=== PATIENT | male | born 1965 | race Caucasian/White ===

== ENCOUNTER 2016-10-16 20:10 | Inpatient (IN) | payer MEDICAID, OTHER ==
[~2016-10-16] VITALS: Ht 165.1 cm; Wt 95.2 kg
[~2016-10-16 20:10] MED LIST: ATEN1TAB73 PO; INHALER
[2016-10-16 20:12] VITALS: BP 138/78; PULSE 85; RESP 16; TEMP 98.6; O2SAT 98
[2016-10-16] MEDS ORDERED: GLYB2.5T3 PO (20:49)
[2016-10-16] MEDS ORDERED: METF1000 PO (20:49)
[2016-10-16] MEDS ORDERED: SIMV20TA PO (20:51)
[2016-10-16] MEDS ORDERED: METO50TA PO (20:51)
[2016-10-16] MEDS ORDERED: ASPI81CH CHEW (20:58)
--- NOTE | 2016-10-16 21:06 | PD ---
HPI Chief Complaint: Diabetic Time Seen by Provider: 20:54 Travel History International Travel<30 days: No Contact w/Intl Traveler<30days: No Traveled to known affect area: No History of Present Illness HPI 51-year-old male with history of type 2 diabetes on metformin, here for evaluation of elevated blood sugar and dark/tarry stools. Patient felt diaphoretic/lightheaded earlier today and noticed that his blood sugar was in the 300s. He has also had several episodes of loose and dark black stool. He denies abdominal pain. He has felt nauseous and has had a few episodes of vomiting. No chest pain or dyspnea. He takes aspirin 81 mg daily. No other antiplatelets or anticoagulate use. No NSAID overuse. He denies history of alcohol abuse. PFSH Past Medical History Hx Anticoagulant Therapy: Yes Cardiovascular Problems: Yes (CHF, HTN) High Cholesterol: Yes Chest Pain: Yes Congestive Heart Failure: Yes Diabetes: Yes Patient Takes Glucophage: Yes Diminished Hearing: No Gastrointestinal Disorders: No Genitourinary: No Hypertension: Yes Musculoskeletal: No Neurologic: No Reproductive: No Sleep Apnea: Yes Tetanus Vaccination: < 5 Years Influenza Vaccination: No Past Surgical History Ear Surgery: Yes (COSMETIC AGE 7 (LEFT)) Other Surgery: No Social History Alcohol Use: No Tobacco Use: Yes (quit 2 months ago) Substance Use: No Allergies-Medications (Allergen,Severity, Reaction): Coded Allergies: Lisinopril (Verified Allergy, Severe, Anaphylaxis, 10/16/16) Reported Meds & Prescriptions Reported Meds & Active Scripts Active Reported Aspirin 81 Mg Chew 81 Mg CHEW DAILY Metoprolol Tartrate 50 Mg Tab 50 Mg PO BID Simvastatin 20 Mg Tab 20 Mg PO DAILY Glyburide 2.5 Mg Tab 2.5 Mg PO DAILY Take with meals at the same time each day Metformin (Metformin HCl) 1,000 Mg Tab 1,000 Mg PO BIDPC With meals Review of Systems Except as stated in HPI: all other systems reviewed are Neg Physical Exam Narrative GENERAL: Well-developed, well-nourished, awake, alert, no acute distress. SKIN: Focused skin assessment warm/dry. No pallor. HEAD: Atraumatic. Normocephalic. EYES: Pupils equal and round. No scleral icterus. No injection or drainage. No conjunctival pallor. ENT: Mucous membranes pink and moist. NECK: Trachea midline. No JVD. CARDIOVASCULAR: Regular rate and rhythm. RESPIRATORY: No accessory muscle use. Clear to auscultation. Breath sounds equal bilaterally. GASTROINTESTINAL: Abdomen soft, non-tender, nondistended. RECTUM: No masses, no fissures, no hemorrhoids, heme positive black stool. MUSCULOSKELETAL: No obvious deformities. No clubbing. No cyanosis. No edema. NEUROLOGICAL: Awake and alert. No obvious cranial nerve deficits. Motor grossly within normal limits. Normal speech. PSYCHIATRIC: Appropriate mood and affect; insight and judgment normal. Data Data Last Documented VS Vital Signs Date Time Temp Pulse Resp B/P Pulse Ox O2 Delivery O2 Flow Rate FiO2 10/16/16 22:06 73 18 158/77 98 Room Air 10/16/16 20:12 98.6 Orders Complete Blood Count With Diff (10/16/16 21:01) Comprehensive Metabolic Panel (10/16/16 21:01) Lipase (10/16/16 21:01) Prothrombin Time / Inr (Pt) (10/16/16 21:01) Act Partial Throm Time (Ptt) (10/16/16 21:01) Type And Screen (10/16/16 21:01) Ecg Monitoring (10/16/16 21:01) Iv Access Insert/Monitor (10/16/16 21:01) Oximetry (10/16/16 21:01) Sodium Chloride 0.9% Flush (Ns Flush) (10/16/16 21:15) Pantoprazole Inj (Protonix Inj) (10/16/16 21:15) Pantoprazole Inj (Protonix Inj) (10/16/16 21:15) Labs Laboratory Tests Test 10/16/16 21:10 White Blood Count 15.5 TH/MM3 Red Blood Count 4.03 MIL/MM3 Hemoglobin 11.8 GM/DL Hematocrit 34.8 % Mean Corpuscular Volume 86.4 FL Mean Corpuscular Hemoglobin 29.4 PG Mean Corpuscular Hemoglobin 34.0 % Concent Red Cell Distribution Width 12.5 % Platelet Count 356 TH/MM3 Mean Platelet Volume 7.5 FL Neutrophils (%) (Auto) 62.2 % Lymphocytes (%) (Auto) 27.3 % Monocytes (%) (Auto) 5.2 % Eosinophils (%) (Auto) 5.0 % Basophils (%) (Auto) 0.3 % Neutrophils # (Auto) 9.7 TH/MM3 Lymphocytes # (Auto) 4.2 TH/MM3 Monocytes # (Auto) 0.8 TH/MM3 Eosinophils # (Auto) 0.8 TH/MM3 Basophils # (Auto) 0.0 TH/MM3 CBC Comment DIFF FINAL Differential Comment Prothrombin Time 10.7 SEC Prothromb Time International 1.0 RATIO Ratio Activated Partial 24.3 SEC Thromboplast Time Sodium Level 139 MEQ/L Potassium Level 3.7 MEQ/L Chloride Level 103 MEQ/L Carbon Dioxide Level 26.2 MEQ/L Anion Gap 10 MEQ/L Blood Urea Nitrogen 53 MG/DL Creatinine 0.99 MG/DL Estimat Glomerular Filtration 80 ML/MIN Rate Random Glucose 146 MG/DL Calcium Level 9.0 MG/DL Total Bilirubin 0.3 MG/DL Aspartate Amino Transf 10 U/L (AST/SGOT) Alanine Aminotransferase 16 U/L (ALT/SGPT) Alkaline Phosphatase 51 U/L Total Protein 7.3 GM/DL Albumin 3.4 GM/DL Lipase 112 U/L Blood Type O POSITIVE Antibody Screen NEGATIVE Blood Bank Comment [facility] Medical Decision Making Medical Screen Exam Complete: Yes Emergency Medical Condition: Yes Differential Diagnosis Melena, upper GI bleed, anemia, DKA, gastroenteritis, enteritis, colitis Narrative Course Initial vital signs show heart rate 85, blood pressure 138/78, pulse ox 98% on room air, oral temp of 98.6F. CBC shows WBC 15.5, hemoglobin 11.8, hematocrit 34.8, platelets 356. (Last hemoglobin in our system was from 2007 and was 15) CMP is remarkable for BUN 53, otherwise unremarkable. Lipase is 112. Stool is heme positive and black. Patient was given a Protonix bolus and started on a Protonix drip. Given heme positive stool, melena, elevated bun, and decrease in hemoglobin, the patient will be admitted for serial H&H and likely GI consultation. He takes aspirin 81 mg daily. No other antiplatelets or anticoagulants. Case discussed with [facility] hospitalist Dr. Saenz who will admit the patient to his service. HemaPrompt Point of Care Internal Pos. & Neg. Controls: Passed Fecal Specimen Occult Blood: Positive Comment Heme positive black stool Diagnosis Primary Impression: Melena Admitting Information Admitting Physician Requests: Observation Irvin Albarran MD October 16, 2016 21:06
[2016-10-16] MEDS ORDERED: PANTOPRAZOLE INJ 80 MG in SODIUM CHLORIDE 0.9% INJ 35 ML IV ONE (21:15)
[2016-10-16] MEDS ORDERED: SODIUM CHLORIDE 0.9% FLUSH 10 ML FLUSH IVF PRN (21:15)
[2016-10-16 21:25] LABS: AUTOMATED NEUTROPHIL # 9.7 TH/MM3 (1.8-7.7); BASOPHIL % 0.3 % (0.0-2.0); EOSINOPHIL # 0.8 TH/MM3 (0-0.4); HEMATOCRIT 34.8 % (39.0-51.0); HEMO FLAGS DIFF FINAL; LYMPH % 27.3 % (9.0-44.0); LYMPHOCYTE # 4.2 TH/MM3 (1.0-4.8); MEAN CELL VOLUME 86.4 FL (80.0-100.0); MEAN CORPUSCULAR HEMOGLOBIN 29.4 PG (27.0-34.0); MONO % 5.2 % (0.0-8.0); NEUT % 62.2 % (16.0-70.0); PLATELET COUNT 356 TH/MM3 (150-450); RED BLOOD COUNT 4.03 MIL/MM3 (4.50-5.90); RED CELL DISTRIBUTION WIDTH 12.5 % (11.6-17.2); WHITE BLOOD COUNT 15.5 TH/MM3 (4.0-11.0)
[2016-10-16 21:40] VITALS: O2SAT 98
[2016-10-16] MEDS: PANTOPRAZOLE INJ 80 MG in SODIUM CHLORIDE 0.9% INJ 100 ML IV SCH (21:40)
[2016-10-16 21:53] LABS: CHLORIDE 103 MEQ/L (98-107); POTASSIUM 3.7 MEQ/L (3.5-5.1); SODIUM (NA) 139 MEQ/L (136-145)
[2016-10-16 21:57] LABS: ANION GAP 10 MEQ/L (5-15); BICARBONATE 26.2 MEQ/L (21.0-32.0); BLOOD UREA NITROGEN 53 MG/DL (7-18)
[2016-10-16 21:58] LABS: APTT (PATIENT) 24.3 SEC (24.3-30.1); PROTHROMBIN TIME - PATIENT 10.7 SEC (9.8-11.6)
[2016-10-16 22:00] LABS: ALT (GPT) 16 U/L (12-78); AST (GOT) 10 U/L (15-37); GLOMERULAR FILTRATION RATE 80 ML/MIN (>89)
[2016-10-16 22:02] LABS: TOTAL BILIRUBIN ADULT 0.3 MG/DL (0.2-1.0)
[2016-10-16 22:03] LABS: ALKALINE PHOSPHATASE 51 U/L (45-117)
[2016-10-16 22:06] VITALS: BP 158/77; PULSE 73; RESP 18; O2SAT 98
[2016-10-16 23:24] VITALS: BP 133/62; PULSE 72; RESP 18; O2SAT 97
--- NOTE | 2016-10-16 23:32 | HHI.HP ---
HPI Service CP Hospitalists Primary Care Physician No Primary Care Physician Admission Diagnosis melena Chief Complaint: weakness today with dark stools Travel History International Travel<30 Days: No Contact w/Intl Traveler <30 Da: No Traveled to Known Affected Are: No History of Present Illness 51-year-old male with history of type 2 diabetes on metformin, . Patient felt diaphoretic/lightheaded earlier today and noticed that his blood sugar was in the 300s. He has also had several episodes of loose and dark black stool. He denies abdominal pain. He has felt nauseous and has had a few episodes of vomiting. No chest pain or dyspnea. He takes aspirin 81 mg daily. No other antiplatelets or anticoagulate use. No NSAID overuse. He denies history of alcohol abuse . Patient had slight drop in hgb from last know blood test and does have melanotic stools will admit and get GI evaluation. Review of Systems Gastrointestinal: COMPLAINS OF: Black stools Past Family Social History Past Medical History hx chf ,hypertension,hyperlipidemia, Past Surgical History cosmetic eye surgery Reported Medications Aspirin 81 Mg Chew 81 Mg CHEW DAILY Metoprolol Tartrate 50 Mg Tab 50 Mg PO BID Simvastatin 20 Mg Tab 20 Mg PO DAILY Glyburide 2.5 Mg Tab 2.5 Mg PO DAILY Take with meals at the same time each day Metformin (Metformin HCl) 1,000 Mg Tab 1,000 Mg PO BIDPC With meals Allergies: Coded Allergies: Lisinopril (Verified Allergy, Severe, Anaphylaxis, 10/16/16) Social History did smoke until 2 months ago no etoh Physical Exam Vital Signs Vital Signs Date Time Temp Pulse Resp B/P Pulse Ox O2 Delivery O2 Flow Rate FiO2 10/16/16 23:24 72 18 133/62 97 Room Air 10/16/16 22:06 73 18 158/77 98 Room Air 10/16/16 21:40 98 Room Air 10/16/16 20:52 16 98 Room Air 10/16/16 20:12 98.6 85 16 138/78 98 Physical Exam GENERAL: This is a well-nourished, well-developed patient, in no apparent distress. SKIN: No rashes, ecchymoses or lesions. Cool and dry. HEAD: Atraumatic. Normocephalic. No temporal or scalp tenderness. EYES: Pupils equal round and reactive. Extraocular motions intact. No scleral icterus. No injection or drainage. ENT: Nose without bleeding, purulent drainage or septal hematoma. Throat without erythema, tonsillar hypertrophy or exudate. Uvula midline. Airway patent. NECK: Trachea midline. No JVD or lymphadenopathy. Supple, nontender, no meningeal signs. CARDIOVASCULAR: Regular rate and rhythm without murmurs, gallops, or rubs. RESPIRATORY: Clear to auscultation. Breath sounds equal bilaterally. No wheezes , rales, or rhonchi. GASTROINTESTINAL: Abdomen soft, non-tender, nondistended. No hepato-splenomegaly , or palpable masses. No guarding. Guiac positive black stool MUSCULOSKELETAL: Extremities without clubbing, cyanosis, or edema. No joint tenderness, effusion, or edema noted. No calf tenderness. Negative Homans sign bilaterally. NEUROLOGICAL: Awake and alert. Cranial nerves II through XII intact. Motor and sensory grossly within normal limits. Five out of 5 muscle strength in all muscle groups. Normal speech. Laboratory Laboratory Tests Test 10/16/16 21:10 White Blood Count 15.5 Red Blood Count 4.03 Hemoglobin 11.8 Hematocrit 34.8 Mean Corpuscular Volume 86.4 Mean Corpuscular Hemoglobin 29.4 Mean Corpuscular Hemoglobin 34.0 Concent Red Cell Distribution Width 12.5 Platelet Count 356 Mean Platelet Volume 7.5 Neutrophils (%) (Auto) 62.2 Lymphocytes (%) (Auto) 27.3 Monocytes (%) (Auto) 5.2 Eosinophils (%) (Auto) 5.0 Basophils (%) (Auto) 0.3 Neutrophils # (Auto) 9.7 Lymphocytes # (Auto) 4.2 Monocytes # (Auto) 0.8 Eosinophils # (Auto) 0.8 Basophils # (Auto) 0.0 CBC Comment DIFF FINAL Differential Comment Prothrombin Time 10.7 Prothromb Time International 1.0 Ratio Activated Partial 24.3 Thromboplast Time Sodium Level 139 Potassium Level 3.7 Chloride Level 103 Carbon Dioxide Level 26.2 Anion Gap 10 Blood Urea Nitrogen 53 Creatinine 0.99 Estimat Glomerular Filtration 80 Rate Random Glucose 146 Calcium Level 9.0 Total Bilirubin 0.3 Aspartate Amino Transf 10 (AST/SGOT) Alanine Aminotransferase 16 (ALT/SGPT) Alkaline Phosphatase 51 Total Protein 7.3 Albumin 3.4 Lipase 112 Blood Type O POSITIVE Antibody Screen NEGATIVE Blood Bank Comment Result Diagram: 10/16/16210910/16/162109 Course in er IV started and started on protonix drip Assessment and Plan Problem List: (1) Melena Status: Acute Plan: acute melanotic stool with some abdominal discomfort on protonix will get GI evaluation follow hgb (2) Diabetes Status: Chronic Plan: will hold po meds use sliding scale as may need procedure (3) Hypertension Status: Chronic Plan: continue metoprolol Assessment and Plan further plan as case develops Code Status full Discussed Condition With patient Physician Certification 2 Midnight Certification Type: Admission for Inpatient Services Order for Inpatient Services The services are ordered in accordance with Medicare regulations or non- Medicare payer requirements, as applicable. In the case of services not specified as inpatient-only, they are appropriately provided as inpatient services in accordance with the 2-midnight benchmark. Estimated LOS (days): 2 2 days is the estimated time the patient will need to remain in the hospital, assuming treatment plan goals are met and no additional complications. Post-Hospital Plan: Not yet determined Problem Qualifiers (1) Diabetes: Mario Layne MD October 16, 2016 23:32
[2016-10-16] MEDS ORDERED: NALOXONE HCL 0.4 MG/ML AMP IV PRN (23:45)
[2016-10-16] MEDS ORDERED: ONDANSETRON HCL 4 MG/2 ML VIAL IVP PRN (23:45)
[2016-10-16] MEDS ORDERED: SODIUM CHLORIDE 0.9% FLUSH 10 ML FLUSH IV FLUSH PRN (23:45)
[2016-10-16] MEDS ORDERED: GLUCAGON 1 MG/ML VIAL OTHER PRN (23:45)
[2016-10-16] MEDS ORDERED: ACETAMINOPHEN 325 MG TAB PO PRN (23:45)
[2016-10-16] MEDS ORDERED: DEXTROSE 50% IN WATER 50 ML VIAL(D50) IV PUSH PRN (23:45)
[2016-10-16] MEDS: SODIUM CHLOR 0.45% 1000 ML INJ 1,000 ML IV SCH (23:56)
[2016-10-17 00:30] VITALS: BP 120/56; PULSE 73; RESP 20; TEMP 97.7; O2SAT 95
[2016-10-17 00:37] VITALS: BP 140/66
[2016-10-17] MEDS: PANTOPRAZOLE INJ 80 MG in SODIUM CHLORIDE 0.9% INJ 100 ML IV SCH ×2 (06:23→17:11)
[2016-10-17] MEDS: INSULIN ASPART SUPPLEMENTAL SCALE SQ SCH ×4 (06:26→21:00)
[2016-10-17 07:37] LABS: AUTOMATED NEUTROPHIL # 6.5 TH/MM3 (1.8-7.7); BASOPHIL % 0.1 % (0.0-2.0); EOSINOPHIL # 0.8 TH/MM3 (0-0.4); EOSINOPHIL % 6.9 % (0.0-4.0); HEMATOCRIT 29.4 % (39.0-51.0); HEMO FLAGS DIFF FINAL; LYMPH % 27.4 % (9.0-44.0); MEAN CELL VOLUME 86.4 FL (80.0-100.0); MEAN CORPUSCULAR HEMOGLOBIN 30.2 PG (27.0-34.0); MONO % 5.6 % (0.0-8.0); PLATELET COUNT 273 TH/MM3 (150-450); RED CELL DISTRIBUTION WIDTH 12.9 % (11.6-17.2); WHITE BLOOD COUNT 10.9 TH/MM3 (4.0-11.0)
[2016-10-17 08:00] VITALS: BP 151/75; PULSE 75; RESP 18; TEMP 96.9; O2SAT 99
[2016-10-17] MEDS: SODIUM CHLORIDE 0.9% FLUSH 10 ML FLUSH IV FLUSH SCH ×2 (09:00→21:00)
[2016-10-17] MEDS: METOPROLOL TARTRATE 50 MG TAB PO SCH ×2 (09:18→23:03)
--- NOTE | 2016-10-17 09:46 | HHI.PR ---
Subjective Remarks Patient feeling alright did not have bowel movement again hgb did decrease a little await GI consult ,will continue NPO for now WBC count now normal Objective Vitals GENERAL: SKIN: Warm and dry. HEAD: Atraumatic. Normocephalic. EYES: Pupils equal and round. No scleral icterus. No injection or drainage. ENT: No nasal bleeding or discharge. Mucous membranes pink and moist. NECK: Trachea midline. No JVD. CARDIOVASCULAR: Regular rate and rhythm. RESPIRATORY: No accessory muscle use. Clear to auscultation. Breath sounds equal bilaterally. GASTROINTESTINAL: Abdomen soft, non-tender, nondistended. Hepatic and splenic margins not palpable. MUSCULOSKELETAL: Extremities without clubbing, cyanosis, or edema. No obvious deformities. NEUROLOGICAL: Awake and alert. No obvious cranial nerve deficits. Motor grossly within normal limits. Five out of 5 muscle strength in the arms and legs. Normal speech. PSYCHIATRIC: Appropriate mood and affect; insight and judgment normal. Vital Signs Date Time Temp Pulse Resp B/P Pulse Ox O2 Delivery O2 Flow Rate FiO2 10/17/16 08:00 96.9 75 18 151/75 99 10/17/16 00:37 75 18 140/66 98 10/17/16 00:30 97.7 73 20 120/56 95 10/16/16 23:24 72 18 133/62 97 Room Air 10/16/16 22:06 73 18 158/77 98 Room Air 10/16/16 21:40 98 Room Air 10/16/16 20:52 16 98 Room Air 10/16/16 20:12 98.6 85 16 138/78 98 10/16/16 10/16/16 10/17/16 15:00 23:00 07:00 Intake Total 300 ml Balance 300 ml Intake IV Total 300 ml Result Diagram: 10/17/16 0700 10/16/16 2110 A/P Problem List: (1) Melena Status: Acute Plan: acute melanotic stool with some abdominal discomfort on protonix await GI evaluation follow hgb (2) Diabetes Status: Chronic Plan: will hold po meds use sliding scale as may need procedure (3) Hypertension Status: Chronic Plan: continue metoprolol Problem Qualifiers (1) Diabetes: Mario Layne MD October 17, 2016 09:46
[2016-10-17 12:00] VITALS: BP 148/79; PULSE 65; RESP 20; TEMP 97.2; O2SAT 99
[2016-10-17] MEDS: SODIUM CHLOR 0.45% 1000 ML INJ 1,000 ML IV SCH (12:54)
[2016-10-17 16:00] VITALS: BP 122/71; PULSE 60; RESP 20; TEMP 96.2; O2SAT 98
[2016-10-17 20:00] VITALS: BP 140/79; PULSE 63; RESP 20; TEMP 97.3; O2SAT 100
[2016-10-17] MEDS ORDERED: PEG (High)/E-LYTE SOLN 4000 ML BTL PO ONE (20:15)
[2016-10-18] VITALS: BP 153/88; PULSE 65; RESP 20; TEMP 96.7; O2SAT 100
[2016-10-18] MEDS: PANTOPRAZOLE INJ 80 MG in SODIUM CHLORIDE 0.9% INJ 100 ML IV SCH (03:09)
[2016-10-18] MEDS: INSULIN ASPART SUPPLEMENTAL SCALE SQ SCH (06:14)
[2016-10-18 06:37] VITALS: BP 165/87; PULSE 69; RESP 20; TEMP 96.9; O2SAT 100
[2016-10-18 06:47] VITALS: BP 165/87; PULSE 69; RESP 15; TEMP 96.9; O2SAT 100
--- NOTE | 2016-10-18 07:09 | MB ---
cc: KIKO DANIELS M.D. DATE OF CONSULTATION 10/17/2016 DATE OF [address] Layne REASON FOR REFERRAL Anemia, possible GI bleed. Thank you for the consultation for this 51-year-old gentleman who has a history of diabetes. 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 Yesterday, he started feeling dizzy, lightheaded and he had a blood sugar in the 300's. He had loose black stools and some nausea and abdominal discomfort. He ended up having a few episodes of vomiting. No coffee-ground. No hematemesis. The patient apparently takes significant NSAIDs recently because of construction and he is having back and joint pain. He denied any other symptoms. Never had a colonoscopy or endoscopy in the past. Denied any bright red blood per rectum. He currently feels better overall. REVIEW OF SYSTEMS All 12-points negative except HPI. PAST MEDICAL HISTORY Significant for cosmetic eye surgery PAST MEDICAL HISTORY Significant for: 1. Hyperlipidemia 2. Hypertension 3. Congestive heart failure MEDICATIONS Reviewed in the chart. ALLERGIES LISINOPRIL SOCIAL HISTORY He stopped smoking two months ago. He denied any drugs or alcohol. PHYSICAL EXAMINATION Alert, oriented no acute distress. VITAL SIGNS: Stable. HEENT: Pupils are round and reactive to light. NECK: Supple. CHEST: Clear. CARDIAC: Regular rate and rhythm. ABDOMEN: Soft, nondistended. Positive bowel sounds. EXTREMITIES: No edema, clubbing or cyanosis. NEUROLOGIC: intact. PSYCHOLOGIC: Appropriate. LABORATORY DATA White count 10.9 down from 15.5, hemoglobin 10.3 down from 11.8, platelet 273, AST 10, ALT 16, alk phos 51, total bilirubin 0.3, INR 1.0. ASSESSMENT/PLAN This is a pleasant 51-year-old gentleman who has a history of anemia, possible GI bleed. The patient denied any GI symptoms, but he dropped his hemoglobin. He is almost 52. I recommend doing upper endoscopy and a colonoscopy. I have discussed with the patient the procedure and complications. He agreed to have it done. This will be done tomorrow as an inpatient. Meanwhile, we will continue supportive care. We will watch his sugar and we will follow up his hemoglobin. If it is low, we will give him packed RBC. MD KRISTEN Garcia/NADIA /8:07 PM /7:03 AM
[2016-10-18] MEDS ORDERED: PROPOFOL 200 MG/20 ML AMP IV ONE (07:12)
[2016-10-18 07:23] LABS: AUTOMATED NEUTROPHIL # 6.6 TH/MM3 (1.8-7.7); BASOPHIL % 0.3 % (0.0-2.0); EOSINOPHIL # 0.9 TH/MM3 (0-0.4); EOSINOPHIL % 7.5 % (0.0-4.0); HEMATOCRIT 29.7 % (39.0-51.0); HEMO FLAGS DIFF FINAL; LYMPH % 28.9 % (9.0-44.0); LYMPHOCYTE # 3.3 TH/MM3 (1.0-4.8); MEAN CELL VOLUME 86.2 FL (80.0-100.0); MEAN CORPUSCULAR HEMOGLOBIN 29.1 PG (27.0-34.0); MEAN CORPUSCULAR HGB CONC 33.8 % (32.0-36.0); MONO % 5.6 % (0.0-8.0); NEUT % 57.7 % (16.0-70.0); PLATELET COUNT 309 TH/MM3 (150-450); RED BLOOD COUNT 3.45 MIL/MM3 (4.50-5.90); RED CELL DISTRIBUTION WIDTH 12.3 % (11.6-17.2); WHITE BLOOD COUNT 11.4 TH/MM3 (4.0-11.0)
--- NOTE | 2016-10-18 07:30 | GIPROC ---
[facility] [address] [place] [address], [id number] EGD PROCEDURE REPORT EXAM DATE: 10/18/2016 PATIENT NAME: Zana Shultz MR #: [id number] BIRTHDATE: 1965 ATTENDING: Phan Corey MD ORDER #: [id number] SYSTEMS TEST TECHNICIAN: Jeramy Keating Neal STATUS: inpatient INDICATIONS: The patient is a 51 yr old male here for an EGD due to anemia and vomiting PROCEDURE PERFORMED: EGD w/ biopsy EGD w/ dilation of esophagus via guidewire MEDICATIONS: None and Per Anesthesia. TOPICAL ANESTHETIC: none CONSENT: The patient understands the risks and benefits of the procedure and understands that these risks include, but are not limited to: sedation, allergic reaction, infection, perforation and/or bleeding. Alternative means of evaluation and treatment include, among others: physical exam, x-rays, and/or surgical intervention. The patient elects to proceed with this endoscopic procedure. medical equipment was checked for proper function. Hand hygiene and appropriate measures for infection prevention was taken. After the risks, benefits and alternatives of the procedure were thoroughly explained, Informed consent was verified, confirmed and timeout was successfully executed by the treatment team. The patient was anesthetized with topical anesthesia and the EC-3490Li (Pedi C) endoscope was introduced through the mouth and advanced to the second portion of the duodenum. Retroflexed views revealed no abnormalities The gastroscope was then slowly withdrawn and removed. Irregular Z line Bx done from EG junction. Esophageal stricture S/P dilation savary 18 mm. Mild duodenitis. Sever gastritis with small ulceration Bx from antrum. The endoscopy was otherwise normal. ADVERSE EVENTS: There were no complications. IMPRESSIONS: 1. Irregular Z line Bx done from EG junction 2. Esophageal stricture S/P dilation savary 18 mm 3. Mild duodenitis 4. Sever gastritis with small ulceration Bx from antrum 5. Normal endoscopy otherwise 6. Retroflexed views revealed no abnormalities RECOMMENDATIONS: 1. Await biopsy results. Biopsy results will not be ready for 7-10 days. If you don't hear from us in two weeks, call our office for biopsy results. 2. Anti-reflux regimen 3. Avoid NSAIDS 4. Continue PPI 5. Ok to [place] home from GI stand PATIENT CONDITION: stable DISPOSITION: Inpatient REPEAT EXAM: Return as needed for EGD Phan Corey MD eSigned: Phan Corey MD 10/18/2016 7:29 AM cc: PATIENT NAME: Zana Shultz MR#: [id number]
--- NOTE | 2016-10-18 07:32 | GIPROC ---
[facility] [address] [place] [address], [id number] COLONOSCOPY PROCEDURE REPORT EXAM DATE: 10/18/2016 PATIENT NAME: Zana Shultz MR #: [id number] BIRTHDATE: 1965 ENDOSCOPIST: Phan Corey MD ORDER #: [id number] INSPECTOR WATCH TRAIN: Brijesh Etienne and Alexandra Keating STATUS: inpatient INDICATIONS: The patient is a 51 yr old male here for a colonoscopy due to anemia, non-specific PROCEDURE PERFORMED: Colonoscopy, diagnostic MEDICATIONS: None and Per Anesthesia. PREP QUALITY: 10 % obscured ESTIMATED BLOOD LOSS: None CONSENT: The patient understands the risks and benefits of the procedure and understands that these risks include, but are not limited to: sedation, allergic reaction, infection, perforation and/or bleeding. Alternative means of evaluation and treatment include, among others: physical exam, x-rays, and/or surgical intervention. The patient elects to proceed with this endoscopic procedure. medical equipment was checked for proper function. Hand hygiene and appropriate measures for infection prevention was taken. After the risks, benefits and alternatives of the procedure were thoroughly explained, Informed consent was verified, confirmed and timeout was successfully executed by the treatment team. A digital exam revealed no abnormalities of the rectum The Pentax EC-[id number] endoscope was introduced through the anus and advanced to the cecum, which was identified by both the appendix and ileocecal valve. The instrument was then slowly withdrawn as the colon was fully examined. COLON FINDINGS: Some stool throughout the colon mostly in the cecum. The colon mucosa was otherwise normal. Retroflexed views revealed no abnormalities The scope was then completely withdrawn from the patient and the procedure terminated. ADVERSE EVENTS: There were no complications. IMPRESSIONS: 1. Some stool throughout the colon mostly in the cecum 2. The colon mucosa was otherwise normal 3. Retroflexed views revealed no abnormalities 4. Revealed no abnormalities of the rectum RECOMMENDATIONS: 1. Yearly hemoccult 2. High fiber diet RECALL: Return 1 year Colonoscopy Phan Corey MD eSigned: Phan Corey MD 10/18/2016 7:32 AM cc:
--- NOTE | 2016-10-18 07:35 | HHI.GIFU ---
Subjective Remarks feels well, no new complains, Objective Vitals I&O Vital Signs Date Time Temp Pulse Resp B/P Pulse Ox O2 Delivery O2 Flow Rate FiO2 10/18/16 06:47 96.9 69 15 165/87 100 10/18/16 06:37 96.9 69 20 165/87 100 10/18/16 00:00 96.7 65 20 153/88 100 10/17/16 20:00 97.3 63 20 140/79 100 10/17/16 16:00 96.2 60 20 122/71 98 10/17/16 12:00 97.2 65 20 148/79 99 10/17/16 08:00 96.9 75 18 151/75 99 I/O 10/17/16 10/17/16 10/17/16 10/18/16 10/18/16 10/18/16 07:00 15:00 23:00 07:00 15:00 23:00 Intake Total 300 ml 240 ml 2000 ml Balance 300 ml 240 ml 2000 ml Intake Oral 240 ml 0 ml Oral Supplement 2000 ml IV Total 300 ml # Voids 3 6 # Bowel Movements 0 10 Laboratory Laboratory Tests Test 10/18/16 06:30 White Blood Count 11.4 Red Blood Count 3.45 Hemoglobin 10.0 Hematocrit 29.7 Mean Corpuscular Volume 86.2 Mean Corpuscular Hemoglobin 29.1 Mean Corpuscular Hemoglobin 33.8 Concent Red Cell Distribution Width 12.3 Platelet Count 309 Mean Platelet Volume 7.8 Neutrophils (%) (Auto) 57.7 Lymphocytes (%) (Auto) 28.9 Monocytes (%) (Auto) 5.6 Eosinophils (%) (Auto) 7.5 Basophils (%) (Auto) 0.3 Neutrophils # (Auto) 6.6 Lymphocytes # (Auto) 3.3 Monocytes # (Auto) 0.6 Eosinophils # (Auto) 0.9 Basophils # (Auto) 0.0 CBC Comment DIFF FINAL Differential Comment Physical Exam HEENT: Pupils round and reactive to light; normocephalic; atraumatic; no jaundice. Throat is clear. NECK: Neck is supple, no JVD, no lymphadenopathy. CHEST: Chest is clear to auscultation and percussion. CARDIAC: Regular rate and rhythm with no murmur gallop or rubs. ABDOMEN: Soft, nondistended, nontender; no hepatosplenomegaly; bowel sounds are present in all four quadrants. EXTREMITIES: No clubbing, cyanosis, or edema. SKIN: Normal; no rash; no jaundice. 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 Assessment and Plan Plan doing ok no sign of bleed, EGD showed esophageal stricture s/p dilation, irregular Z line, Bx done, gastritis with small ulcerations in the antrum Bx done, colon was normal continue PPI diet as tolerated FU Bx ok to [place] home from Phan Wetzel MD October 18, 2016 07:35
[2016-10-18 08:00] VITALS: BP 139/75; PULSE 88; RESP 18; TEMP 97.5; O2SAT 99
[2016-10-18 08:04] VITALS: BP 95/64; PULSE 70; RESP 16; TEMP 98; O2SAT 97
[2016-10-18] MEDS: SODIUM CHLORIDE 0.9% FLUSH 10 ML FLUSH IV FLUSH SCH (08:41)
[2016-10-18] MEDS: SODIUM CHLOR 0.45% 1000 ML INJ 1,000 ML IV SCH (08:41)
[2016-10-18] MEDS: METOPROLOL TARTRATE 50 MG TAB PO SCH (08:41)
[2016-10-18] MEDS ORDERED: PANT20 PO (10:13)
--- NOTE | 2016-10-18 10:14 | HHI.DCPOC ---
Discharge Care Plan Diagnosis: (1) Melena (2) Diabetes (3) Hypertension Goals to Promote Your Health * To prevent worsening of your condition and complications * To maintain your health at the optimal level Directions to Meet Your Goals Take your medications as prescribed Follow your dietary instruction Follow activity as directed Keep your appointments as scheduled Take your immunizations and boosters as scheduled If your symptoms worsen call your PCP, if no PCP go to Urgent Care Center or Emergency Room Smoking is Dangerous to Your Health. Avoid second hand smoke Call the 24-hour hour crisis hotline for domestic abuse at Mario Layne MD October 18, 2016 10:14
--- NOTE | 2016-10-18 10:22 | HHI.DS ---
Discharge Summary Admission Date October 16, 2016 at 23:39 Admitting Diagnosis melena (1) Melena Diagnosis: Principal (2) Diabetes Diagnosis: Principal (3) Hypertension Diagnosis: [facility] GI Procedures panendoscopy Brief History 51-year-old male with history of type 2 diabetes on metformin, . Patient felt diaphoretic/lightheaded earlier today and noticed that his blood sugar was in the 300s. He has also had several episodes of loose and dark black stool. He denies abdominal pain. He has felt nauseous and has had a few episodes of vomiting. No chest pain or dyspnea. He takes aspirin 81 mg daily. No other antiplatelets or anticoagulate use. No NSAID overuse. He denies history of alcohol abuse . Patient had slight drop in hgb from last know blood test and does have melanotic stools will admit and get GI evaluation. CBC/BMP: 10/18/16 0630 10/16/16 2110 Significant Findings Laboratory Tests Test 10/16/16 10/17/16 10/18/16 21:10 07:00 06:30 White Blood Count 15.5 TH/MM3 11.4 TH/MM3 (4.0-11.0) (4.0-11.0) Red Blood Count 4.03 MIL/MM3 3.40 MIL/MM3 3.45 MIL/MM3 (4.50-5.90) (4.50-5.90) (4.50-5.90) Hemoglobin 11.8 GM/DL 10.3 GM/DL 10.0 GM/DL (13.0-17.0) (13.0-17.0) (13.0-17.0) Hematocrit 34.8 % 29.4 % 29.7 % (39.0-51.0) (39.0-51.0) (39.0-51.0) Eosinophils (%) (Auto) 5.0 % (0.0-4.0) 6.9 % (0.0-4.0) 7.5 % (0.0-4.0) Neutrophils # (Auto) 9.7 TH/MM3 (1.8-7.7) Eosinophils # (Auto) 0.8 TH/MM3 0.8 TH/MM3 0.9 TH/MM3 (0-0.4) (0-0.4) (0-0.4) Blood Urea Nitrogen 53 MG/DL (7-18) Estimat Glomerular Filtration 80 ML/MIN (>89) Rate Random Glucose 146 MG/DL (74-106) Aspartate Amino Transf 10 U/L (15-37) (AST/SGOT) PE at Discharge GENERAL: SKIN: Warm and dry. HEAD: Atraumatic. Normocephalic. EYES: Pupils equal and round. No scleral icterus. No injection or drainage. ENT: No nasal bleeding or discharge. Mucous membranes pink and moist. NECK: Trachea midline. No JVD. CARDIOVASCULAR: Regular rate and rhythm. RESPIRATORY: No accessory muscle use. Clear to auscultation. Breath sounds equal bilaterally. GASTROINTESTINAL: Abdomen soft, non-tender, nondistended. Hepatic and splenic margins not palpable. MUSCULOSKELETAL: Extremities without clubbing, cyanosis, or edema. No obvious deformities. NEUROLOGICAL: Awake and alert. No obvious cranial nerve deficits. Motor grossly within normal limits. Five out of 5 muscle strength in the arms and legs. Normal speech. PSYCHIATRIC: Appropriate mood and affect; insight and judgment normal. Hospital Course Patient admitted and started on protonix drip and held on his asa lab work did show some anemia and at discharge hgb greater then 10 and will be rechecked as outpatient 10/23/16 . Patient melena improved with normal bowel movement . GI performed rajan endoscopy,results showed Esophageal stricture S/P dilatation and gastritis with small ulcer antrum bx pending colon was normal. Patient feeling well discharge today with follow up to PCP 1 week and GI 1 week CBC as above. To continue home meds hold asa for 2 weeks and start on MVI and protonix 20 a day called in to [facility] pharmacy. Pt Condition on Discharge: Good Discharge Disposition: Discharge Home Discharge Instructions DIET: Follow Instructions for: Diabetic Diet Activities you can perform: Regular-No Restrictions New Medications: Pantoprazole (Protonix) 20 Mg Tab 20 MG PO DAILY one a day Reflux #30 Ref 0 TAB NS Continued Medications: Glyburide (Glyburide) 2.5 Mg Tab 2.5 MG PO DAILY Take with meals at the same time each day Blood Sugar Management #30 Ref 0 TAB Metformin (Metformin) 1,000 Mg Tab 1000 MG PO BIDPC With meals Blood Sugar Management #60 Ref 0 TAB Metoprolol Tartrate (Metoprolol Tartrate) 50 Mg Tab 50 MG PO BID #60 Ref 0 TAB Simvastatin (Simvastatin) 20 Mg Tab 20 MG PO DAILY Cholesterol Management #30 Ref 0 TAB Discontinued Medications: Aspirin (Aspirin) 81 Mg Chew 81 MG CHEW DAILY Ref 0 TAB Additional Information f/u pcp 1 week gi 1 week Mario Layne MD October 18, 2016 10:22
== END 2016-10-18 11:21 | disposition home or self-care (01) | DRG 379 ==
LOC: PHED 20:10 → PHEDA 22:39 → OBSVTOIN 23:39 → PH3A 10-17 00:31
PROVIDERS: ADMIT Internal Medicine; ATTEND Internal Medicine
PROC: 0DB68ZX Excision of Stomach, Via Natural or Artificial Opening Endoscopic, Diagnostic (ICD-10-PCS; 2016-10-18)
PROC: 0DJD8ZZ Inspection of Lower Intestinal Tract, Via Natural or Artificial Opening Endoscopic (ICD-10-PCS; 2016-10-18)
PROC: 0D758ZZ Dilation of Esophagus, Via Natural or Artificial Opening Endoscopic (ICD-10-PCS; principal; 2016-10-18 07:00)
PROC: 0DB48ZX Excision of Esophagogastric Junction, Via Natural or Artificial Opening Endoscopic, Diagnostic (ICD-10-PCS; 2016-10-18 07:00)
DX: K29.71 Gastritis, unspecified, with bleeding (principal); K22.2 Esophageal obstruction; E11.9 Type 2 diabetes mellitus without complications; E78.5 Hyperlipidemia, unspecified; D64.9 Anemia, unspecified; K21.9 Gastro-esophageal reflux disease without esophagitis; K29.80 Duodenitis without bleeding; Z79.84 Long term (current) use of oral hypoglycemic drugs; Z87.891 Personal history of nicotine dependence
CPT/HCPCS: 80053; 82948; 83690; 85025; 85610; 85730; 86850; 86900; 86901; 88305; 88312; 96365; C1769; C9113